=== PATIENT | male | born 1995 | race African-American/Black ===

== ENCOUNTER 2017-01-29 17:56 | Emergency (ER) | payer SELFPAY ==
[~2017-01-29] VITALS: Ht 177.8 cm; Wt 81.6 kg
[2017-01-29 18:20] VITALS: BP 127/68
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
== END 2017-01-29 21:51 | disposition home or self-care (01) ==
LOC: ER 17:56
DX: S09.8XXA Other specified injuries of head, initial encounter (principal); S16.1XXA Strain of muscle, fascia and tendon at neck level, initial encounter; F17.210 Nicotine dependence, cigarettes, uncomplicated; V89.2XXA Person injured in unspecified motor-vehicle accident, traffic, initial encounter; Y93.89 Activity, other specified; Y99.8 Other external cause status; Y92.89 Other specified places as the place of occurrence of the external cause
CPT/HCPCS: 70450; 72125; 99284-25

== ENCOUNTER 2019-03-30 17:36 | Emergency (ER) | payer SELFPAY | END 2019-03-30 18:55 | disposition left against medical advice (07) | LOC: ER 17:36 | DX: R05 Cough (principal); Z53.21 Procedure and treatment not carried out due to patient leaving prior to being seen by health care provider ==

== ENCOUNTER 2021-03-17 19:34 | Emergency (ER) | payer SELFPAY ==
[~2021-03-17] VITALS: Ht 180.3 cm; Wt 90.9 kg
[2021-03-17 20:00] LABS: BASO % 0 % (0-3); EOS # 0.1 x10^3/uL (0.0-0.7); EOS % 1 % (0-3); HEMATOCRIT 40.8 % (39.0-53.0); HEMOGLOBIN 13.6 g/dL (13.0-17.5); LYMPH # 3.5 x10^3/uL (1.0-4.8); LYMPH % 49 % (24-48); MEAN CORPUSCULAR HEMOGLOBIN 26 pg (25-35); MEAN CORPUSCULAR HGB CONC 33 g/dL (31-37); MEAN CORPUSCULAR VOLUME 78 fL (79-100); MONO # 0.6 x10^3/uL (0.0-1.1); MONO % 9 % (0-9); NEUT # 2.9 x10^3uL (1.8-7.7); NEUT % 41 % (31-73); PLATELET COUNT 219 x10^3/uL (140-400); RED BLOOD COUNT 5.25 x10^6/uL (4.30-5.70); RED CELL DISTRIBUTION WIDTH 13.5 % (11.5-14.5); WHITE BLOOD COUNT 7.1 x10^3/uL (4.0-11.0)
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
[2021-03-17 20:07] VITALS: BP 168/104
[2021-03-17 20:12] LABS: CALCIUM 9.2 mg/dL (8.5-10.1); CREATININE 0.9 mg/dL (0.7-1.3); GFR 125.4; POTASSIUM 3.5 mmol/L (3.5-5.1)
[2021-03-17 20:15] LABS: ALBUMIN 4.7 g/dL (3.4-5.0); ALBUMIN/GLOBULIN RATIO 1.6 (1.0-1.7); TOTAL BILIRUBIN 0.8 mg/dL (0.2-1.0); TOTAL PROTEIN 7.6 g/dL (6.4-8.2)
--- NOTE | 2021-03-17 20:21 | RAD ---
Two-view chest dated 03/17/2021 8:19 PM Comparison: None CLINICAL INDICATION: Chest pain FINDINGS: PA and lateral views obtained. Heart and mediastinal contours within normal limits. Lungs are clear. No consolidation or pleural effusion. No pneumothorax. IMPRESSION: No acute radiographic abnormality. Electronically signed by: Erik Pierce MD (03/17/2021 8:19 PM) [facility]
--- NOTE | 2021-03-17 20:22 | RAD ---
Three-view right wrist dated 03/17/2021. No comparison available. CLINICAL INDICATION: Pain. FINDINGS: 3 views right wrist show normal bony alignment. No displaced fracture. No periostitis or bone destruc tion. No acute osseous or articular abnormality. IMPRESSION: No acute radiographic abnormality. Electronically signed by: Erik Pierce MD (03/17/2021 8:20 PM) [facility]
[2021-03-17] MEDS ORDERED: IBUPROFEN 600 MG TABLET. PO ONE (20:45)
[2021-03-17] MEDS ORDERED: IV NORMAL SALINE 1,000ML 1,000 ML IV ONE (20:45)
[2021-03-17 22:31] LABS: AMPHETAMINE/METHAMPHETAMINE NEG (NEG); BARBITURATES NEG (NEG); BENZODIAZEPINES NEG (NEG); CANNABINOIDS POS (NEG); COCAINE NEG (NEG); METHADONE NEG (NEG); OPIATES NEG (NEG); PHENCYCLIDINE NEG (NEG)
--- NOTE | 2021-03-18 06:34 | EKG ---
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
== END 2021-03-17 22:15 | disposition home or self-care (01) ==
LOC: ER 19:34
DX: R00.2 Palpitations (principal); M25.532 Pain in left wrist
CPT/HCPCS: 36415; 71046; 73110; 80053; 80307; 84484; 85025; 93005; 99285-25